=== PATIENT | male | born 1975 | race Caucasian/White ===

== ENCOUNTER 2018-05-15 12:29 | Emergency (ER) | payer BC, SELFPAY ==
[2018-05-15 12:37] VITALS: BP 142/84; PULSE 67; RESP 16; TEMP 37; O2SAT 100
--- NOTE | 2018-05-15 13:27 | DI.RAD_ITS ---
SYMPTOMS/DIAGNOSIS: TRAUMA, PROXIMAL HUMERUS PAIN LEFT SHOULDER: There is a fracture seen extending transversely through the surgical neck of the humerus. There is mild displacement and mild impaction. There is no evidence of dislocation. The AC joint appears intact. IMPRESSION: Mildly displaced fracture through the surgical neck of the humerus.
--- NOTE | 2018-05-15 13:53 | DI.VRAD_ITS ---
EXAM: XR Left Shoulder Complete, 2 or More Views EXAM DATE/TIME: 05/15/2018 1:17 PM CLINICAL HISTORY: 42 years old, male; Injury or trauma; Fall; Initial encounter; Fracture, traumatic injury; Nondisplaced; Humerus; Left; Upper end of humerus; Patient HX: Trauma, proximal pain, S/P skiing accident. TECHNIQUE: XR Left shoulder complete 2 or more views. COMPARISON: No relevant prior studies available. FINDINGS: Bones/joints: Transverse and mildly displaced fracture within the surgical neck left humerus. No dislocation. Soft tissues: Normal. IMPRESSION: Transverse and mildly displaced fracture within the surgical neck left humerus. Dictated and Authenticated by: Marcie Marquez MD. Ordering:BARI Bundy MD
--- NOTE | 2018-05-15 14:10 | W.ED.GENAD ---
Discharge Plan Disposition Patient Disposition: HOME Condition: Stable Discharge Details Chief Complaint: Orthopedic Clinical Impression: Fracture of surgical neck of left humerus Primary Care Provider: Alan Baker ED Provider: Gregor Aranda Home Meds and New Rx's Prescriptions: New hydrocodone-acetaminophen [Jasper] 5-325 mg tablet 1 tab PO Q6H PRN (Reason: pain) Qty: 6 RF: 0 ibuprofen [IBU] 600 mg tablet 600 mg PO QID PRN (Reason: pain) Qty: 20 RF: 0 Discharge Instructions Instructions: Proximal Humerus Fracture (ED) Additional Instructions: Feel free to return to the emergency department for any new or significant worsening of symptoms otherwise take pain medication as prescribed and follow-up with local orthopedist as directed by their office. Referrals: No,Local [Primary Care Provider] - (Follow-up with local orthopedist as soon as possible.) Discharge Data Discharge Date/Time-TO BE ENTERED AT DEPARTURE: 05/15/18 14:41 Medical Decision Making Patient presenting the emergency department after fall during skiing. Patient states that he landed hard on his left shoulder and since then has significant amount of pain with movement of his arm. Patient does state slight bloody nose after the event but denies any loss of consciousness, headache, neck pain, neurological deficits, shortness of breath or chest pain. Physical exam shows a swollen left proximal humerus with tenderness to palpation and difficulty performing any range of motion of the upper extremity. Lower extremity is appropriate, no signs of neurological deficit, normal cap refill and pulses. neck and back exam is unremarkable for any tenderness, step-off, or other acute findings. Cardiac and respiratory exam is negative, she does have slight abrasions to the nose but internal inspection of the nose shows no hematoma and no acute bleeding or even dried blood at this time. Concern for possible dislocation versus fracture of the left humerus plan to perform radiological imaging. Pending results patient given ibuprofen. Review of radiological imaging shows a mildly displaced surgical neck fracture of the left humerus. Patient reassessed and has no new or worsening symptoms. Patient placed in a cuff and collar and prescribed limited supply of narcotic for pain control otherwise patient states he prefers to take ibuprofen and acetaminophen. Patient given imaging disc and encouraged to follow-up with orthopedist this next week for reassessment and any further treatment or interventions as needed HPI General Mode of arrival: ambulatory. Date/Time Provider Initiated Documentation: 05/15/18 12:46. Limitations to Documentation: no limitations. Information obtained by: patient. History of Present Illness 42 year old M presents to the emergency department with the chief complaint of Skiing injury, left arm pain, described as moderate, with intensity rated at 7. Quality is described as sharp, and is localized to the left and upper extremity. Patient distal. Patient started experiencing this hour(s) (1) and it has been constant. Immobilization improves symptom(s), Movement worsens symptoms . Patient notes no other symptoms.. Related Data Home Medications Medication Instructions Recorded Confirmed hydrocodone-acetaminophen [Jasper] 1 tab PO Q6H PRN #6 tab 05/15/18 ibuprofen [IBU] 600 mg PO QID PRN #20 tab 05/15/18 Previous Rx's Medication Instructions Recorded hydrocodone-acetaminophen [Jasper] 1 tab PO Q6H PRN #6 tab 05/15/18 ibuprofen [IBU] 600 mg PO QID PRN #20 tab 05/15/18 Allergies Allergy/AdvReac Type Severity Reaction Status Date / Time No Known Allergies Allergy Unverified 05/15/18 12:40 General Stated Complaint: Orthopedic HOMERO: 4 Review of Systems ENT Denies neck pain Cardiovascular Denies syncope Musculoskeletal Reports as per HPI, Denies back pain, Denies neck pain, Denies numbness and Denies tingling Integumentary/Breasts Denies rash, Denies sores and Denies wounds Neurologic Denies syncope, Denies numbness and Denies tingling PFSH Social History Smoking/Tobacco Use Status: Never Exam Const General: cooperative and no acute distress Orientation: alert, awake and oriented x3 HENMT Head: no palpable skull fracture, no Mendes's sign, no contusions, no raccoon eyes, no scalp tenderness and No periorbital ecchymosis Resp Effort & Inspection: normal respiratory effort and able to speak in complete sentences Auscultation: clear to auscultation bilaterally Cardio Rate: regular rate Rhythm: regular rhythm Heart Sounds: S1 normal and S2 normal Back/Spine/Pelvis Cervical Spine: normal cervical lordosis, cervical ROM normal, No cervical muscular tenderness, No cervical spinal tenderness and No step off deformity Extrem General: normal exam except as noted Left upper extremity: shoulder/upper arm Details: tenderness Location: of the proximal humerus and of the mid-shaft humerus; not of the clavicle and not of the A-C joint, swelling Location: of the proximal humerus, axillary nerve sensory function normal and abnormal ROM Details: held in an abnormal fashion Details: in ABduction and in internal rotation; no ecchymosis, elbow/forearm Details: normal to inspection and normal ROM; no tenderness, wrist Details: normal to inspection and normal ROM; no tenderness and hand Details: normal to inspection, normal capillary refill, neuromotor exam normal, neurosensory exam normal, tendon exam normal, vascular exam Details: radial pulse present and normal capillary refill and normal ROM of fingers; no tenderness Course Vital Signs Temperature 37 C 05/15/18 12:37 Pulse 67 05/15/18 12:37 Respiratory Rate 16 05/15/18 12:37 Blood Pressure 142/84 H 05/15/18 12:37 Pulse Oximetry 100 05/15/18 12:37 Temperature 37 C 05/15/18 12:37 Temperature Source Skin 05/15/18 12:37 Pulse 67 05/15/18 12:37 Respiratory Rate 16 05/15/18 12:37 Respiratory Effort Non-Labored 05/15/18 12:37 Blood Pressure 142/84 H 05/15/18 12:37 Blood Pressure Position Sitting 05/15/18 12:37 Pulse Oximetry 100 05/15/18 12:37 Oxygen Delivery Method Room Air 05/15/18 12:37 Oxygen Flow Rate 0 05/15/18 12:37 Pain Level 7 05/15/18 12:37
--- NOTE | 2018-05-15 14:15 | ED.GENADUL_ITS ---
Discharge Plan Disposition Patient Disposition: HOME Condition: Stable Discharge Details Chief Complaint: Orthopedic Clinical Impression: Fracture of surgical neck of left humerus Primary Care Provider: Alan Baker ED Provider: Gregor Aranda Home Meds and New Rx's Prescriptions: New hydrocodone-acetaminophen [[place]] 5-325 mg tablet 1 tab PO Q6H PRN (Reason: pain) Qty: 6 RF: 0 ibuprofen [IBU] 600 mg tablet 600 mg PO QID PRN (Reason: pain) Qty: 20 RF: 0 Discharge Instructions Instructions: Proximal Humerus Fracture (ED) Additional Instructions: Feel free to return to the emergency department for any new or significant worsening of symptoms otherwise take pain medication as prescribed and follow-up with local orthopedist as directed by their office. Referrals: No,Local [Primary Care Provider] - (Follow-up with local orthopedist as soon as possible.) Discharge Data Discharge Date/Time-TO BE ENTERED AT DEPARTURE: 05/15/18 14:41 Medical Decision Making Patient presenting the emergency department after fall during skiing. Patient states that he landed hard on his left shoulder and since then has significant amount of pain with movement of his arm. Patient does state slight bloody nose after the event but denies any loss of consciousness, headache, neck pain, neurological deficits, shortness of breath or chest pain. Physical exam shows a swollen left proximal humerus with tenderness to palpation and difficulty performing any range of motion of the upper extremity. Lower extremity is appropriate, no signs of neurological deficit, normal cap refill and pulses. neck and back exam is unremarkable for any tenderness, step-off, or other acute findings. Cardiac and respiratory exam is negative, she does have slight abrasions to the nose but internal inspection of the nose shows no hematoma and no acute bleeding or even dried blood at this time. Concern for possible dislocation versus fracture of the left humerus plan to perform radiological imaging. Pending results patient given ibuprofen. Review of radiological imaging shows a mildly displaced surgical neck fracture of the left humerus. Patient reassessed and has no new or worsening symptoms. Patient placed in a cuff and collar and prescribed limited supply of narcotic for pain control otherwise patient states he prefers to take ibuprofen and acetaminophen. Patient given imaging disc and encouraged to follow-up with orthopedist this next week for reassessment and any further treatment or interventions as needed HPI General Mode of arrival: ambulatory . Date/Time Provider Initiated Documentation: 05/15/18 12:46 . Limitations to Documentation: no limitations . Information obtained by: patient . History of Present Illness 42 year old M presents to the emergency department with the chief complaint of Skiing injury, left arm pain, described as moderate, with intensity rated at 7. Quality is described as sharp, and is localized to the left and upper extremity. Patient distal. Patient started experiencing this hour(s) (1) and it has been constant. Immobilization improves symptom(s), Movement worsens symptoms . Patient notes no other symptoms.. Related Data Home Medications Medication Instructions Recorded Confirmed hydrocodone-acetaminophen [[place]] 1 tab PO Q6H PRN #6 tab 05/15/18 ibuprofen [IBU] 600 mg PO QID PRN #20 tab 05/15/18 Previous Rx's Medication Instructions Recorded hydrocodone-acetaminophen [[place]] 1 tab PO Q6H PRN #6 tab 05/15/18 ibuprofen [IBU] 600 mg PO QID PRN #20 tab 05/15/18 Allergies Allergy/AdvReac Type Severity Reaction Status Date / Time No Known Allergies Allergy Unverified 05/15/18 12:40 General Stated Complaint: Orthopedic HOMERO: 4 Review of Systems ENT Denies neck pain Cardiovascular Denies syncope Musculoskeletal Reports as per HPI, Denies back pain, Denies neck pain, Denies numbness and Denies tingling Integumentary/Breasts Denies rash, Denies sores and Denies wounds Neurologic Denies syncope, Denies numbness and Denies tingling PFSH Social History Smoking/Tobacco Use Status: Never Exam Const General: cooperative and no acute distress Orientation: alert, awake and oriented x3 HENMT Head: no palpable skull fracture, no Mendes's sign, no contusions, no raccoon eyes, no scalp tenderness and No periorbital ecchymosis Resp Effort & Inspection: normal respiratory effort and able to speak in complete sentences Auscultation: clear to auscultation bilaterally Cardio Rate: regular rate Rhythm: regular rhythm Heart Sounds: S1 normal and S2 normal Back/Spine/Pelvis Cervical Spine: normal cervical lordosis, cervical ROM normal, No cervical muscular tenderness, No cervical spinal tenderness and No step off deformity Extrem General: normal exam except as noted Left upper extremity: shoulder/upper arm Details: tenderness Location: of the proximal humerus and of the mid-shaft humerus; not of the clavicle and not of the A-C joint, swelling Location: of the proximal humerus, axillary nerve sensory function normal and abnormal ROM Details: held in an abnormal fashion Details: in ABduction and in internal rotation; no ecchymosis, elbow/forearm Details: normal to inspection and normal ROM; no tenderness, wrist Details: normal to inspection and normal ROM; no tenderness and hand Details: normal to inspection, normal capillary refill, neuromotor exam normal, neurosensory exam normal, tendon exam normal, vascular exam Details: radial pulse present and normal capillary refill and normal ROM of fingers; no tenderness Course Vital Signs Temperature 37 C 05/15/18 12:37 Pulse 67 05/15/18 12:37 Respiratory Rate 16 05/15/18 12:37 Blood Pressure 142/84 H 05/15/18 12:37 Pulse Oximetry 100 05/15/18 12:37 Temperature 37 C 05/15/18 12:37 Temperature Source Skin 05/15/18 12:37 Pulse 67 05/15/18 12:37 Respiratory Rate 16 05/15/18 12:37 Respiratory Effort Non-Labored 05/15/18 12:37 Blood Pressure 142/84 H 05/15/18 12:37 Blood Pressure Position Sitting 05/15/18 12:37 Pulse Oximetry 100 05/15/18 12:37 Oxygen Delivery Method Room Air 05/15/18 12:37 Oxygen Flow Rate 0 05/15/18 12:37 Pain Level 7 05/15/18 12:37
== END 2018-05-15 14:41 | disposition home or self-care (01) ==
PROVIDERS: Emergency Provider Nurse Practitioner Family
DX: S42.212A Unspecified displaced fracture of surgical neck of left humerus, initial encounter for closed fracture (principal); V00.321A Fall from snow-skis, initial encounter; Y93.23 Activity, snow (alpine) (downhill) skiing, snowboarding, sledding, tobogganing and snow tubing
CPT/HCPCS: 99284; 73030